=== PATIENT | female | born 1985 | race Caucasian/White ===

== ENCOUNTER 2018-12-04 23:49 | Emergency (ER) | payer BC ==
[~2018-12-04] VITALS: Ht 170.2 cm; Wt 76.3 kg
[2018-12-05] MEDS ORDERED: normal saline 1000ML IV soln IVB ONE
[2018-12-05] MEDS ORDERED: ondansetron/PF 4mg/2ml inj IV ONE
[2018-12-05 00:30] LABS: BASOPHILS % (AUTO) 0.4 % (0-1); EOSINOPHILS # (AUTO) 0.1 X10'3 (0-0.9); EOSINOPHILS % (AUTO) 0.6 % (0-6); HEMATOCRIT 40.1 % (35.0-45.0); HEMOGLOBIN 13.9 g/dl (12.0-16.0); LYMPHOCYTES % (AUTO) 8.9 % (21-51); MEAN CORPUSCULAR HEMOGLOBIN 31.2 PG (27.0-31.0); MEAN CORPUSCULAR HGB CONC 34.7 g/dL (33.0-36.5); MEAN CORPUSCULAR VOLUME 89.8 FL (78-98); MEAN PLATELET VOLUME 8.4 FL (7.4-10.4); MONOCYTES # (AUTO) 0.3 X10'3 (0-0.9); MONOCYTES % (AUTO) 2.9 % (2-12); NEUTROPHILS # (AUTO) 9.4 X10'3 (1.8-7.7); NEUTROPHILS % (AUTO) 87.2 % (42-75); PLATELET COUNT 291 X10'3 (140-440); RED BLOOD COUNT 4.46 X10'6 (4.20-5.60); RED CELL DISTRIBUTION WIDTH 12.7 % (11.5-14.5); WHITE BLOOD COUNT 10.8 X10'3 (4.5-11.0)
--- NOTE | 2018-12-05 00:31 | NUR ---
pt sitting up in bed with emesis bag feeling very nauseated and not well, PA informed.
[2018-12-05] MEDS ORDERED: proCHLORperazine 10 MG/2 ml inj IV ONE (00:35)
[2018-12-05] MEDS ORDERED: famotidine/PF 10 mg/ml inj IV ONE (00:35)
[2018-12-05 00:37] LABS: CLARITY,URINE CLOUDY (Clear); COLOR,URINE YELLOW (Yellow); GLUCOSE, URINE NEGATIVE (Neg); KETONES,URINE 40 mg/dl (Neg); LEUKOCYTE ESTERASE ,URINE NEGATIVE (Neg); NITRITES, URINE NEGATIVE (Neg); OCCULT BLOOD,URINE LARGE (Neg); PROTEIN,URINE TRACE mg/dl (Neg)
[2018-12-05 00:39] LABS: UA COLLECTION TYPE CLN CATCH MIDSTREAM
[2018-12-05 00:44] LABS: BACTERIA,URINE 2+ /HPF (Neg); MUCUS STRANDS FEW /LPF (Neg); RBC,URINE 0-2 /HPF (0-2); SQUAMOUS EPITHELIAL CELL,UR MANY /LPF (FEW)
[2018-12-05] MEDS ORDERED: ONDA4TAB6 PO (00:45)
[2018-12-05] MEDS ORDERED: PROC25SU31 RC (00:45)
[2018-12-05] MEDS ORDERED: FAMO40TA73 PO (00:45)
[2018-12-05 00:46] LABS: ALANINE AMINOTRANSFERASE 35 U/L (12-78); ALBUMIN 4.2 G/DL (3.4-5.0); ALBUMIN/GLOBULIN RATIO 1.1 (1.1-1.5); ALKALINE PHOSPHATASE 63 IU/L (46-116); ANION GAP 13 (8-16); ASPARTATE AMINO TRANSFERASE 17 U/L (10-37); BILIRUBIN,TOTAL 0.6 MG/DL (0.1-1.0); BLOOD UREA NITROGEN 14 MG/DL (7-18); BUN/CREATININE RATIO 16.7 (6.6-38.0); CALCIUM 8.8 MG/DL (8.5-10.1); CHLORIDE 104 MMOL/L (99-107); CREATININE 0.84 MG/DL (0.40-0.90); GLUCOSE 115 MG/DL (70-104); LIPASE 80 U/L (73-393); POTASSIUM 3.6 MMOL/L (3.5-5.1); SODIUM 141 MMOL/L (135-145); TOTAL CARBON DIOXIDE 23.7 MMOL/L (24-32); eGFR 77 ML/MIN
[2018-12-05] MEDS ORDERED: dexamethasone sod phosphate 10mg/ml inj IV STA (00:51)
[2018-12-05] MEDS ORDERED: LORazepam 2 mg/ml vial IV ONE (00:55)
[2018-12-05 01:01] LABS: URINE HCG NEGATIVE (NEG)
[2018-12-05 01:23] VITALS: BP 116/67
== END 2018-12-05 01:26 | disposition home or self-care (01) ==
LOC: ER 23:50
DX: A08.4 Viral intestinal infection, unspecified (principal); R31.9 Hematuria, unspecified; Z79.899 Other long term (current) drug therapy
CPT/HCPCS: 36415; 80053; 81001; 81025; 83690; 85025; 96361; 96374; 96375; 99283; J0780; J1100; J2060; J2405; J3490; J7030